=== PATIENT | female | born 1930 | race Caucasian/White ===

== ENCOUNTER → 2016-09-04 | Outpatient (CLI) | payer MEDICARE, BC ==
[~2016-09-04] MED LIST: COLACE 100MG C100 MG PO; HYDROCODON-ACE1 EAC2 PO; LEVOTHYROXINE25 MCG PO; METOPROLOL TART50 MG PO; OXYCODONE-ACET1 EACH PO; PROTONIX40 MG PO
[2016-09-04 12:03] LABS: BUN/CREATININE RATIO 21 (0-10)
== END ==
LOC: OPSV2 10:40
PROVIDERS: Anesthesiology
DX: Z01.810 Encounter for preprocedural cardiovascular examination (principal); Z01.812 Encounter for preprocedural laboratory examination; K40.90 Unilateral inguinal hernia, without obstruction or gangrene, not specified as recurrent
CPT/HCPCS: 36415; 80048; 93005

== ENCOUNTER → 2016-09-12 | Day surgery (SDC) | payer MEDICARE, BC ==
[~2016-09-12] VITALS: Ht 154.9 cm; Wt 63.5 kg
== END | disposition home or self-care (01) ==
LOC: OR 05:51
PROVIDERS: Surgery
PROC: 0YQ50ZZ Repair Right Inguinal Region, Open Approach (ICD-10-PCS; principal; 2016-09-12 07:30)
DX: K40.90 Unilateral inguinal hernia, without obstruction or gangrene, not specified as recurrent (principal); E03.9 Hypothyroidism, unspecified; E55.9 Vitamin D deficiency, unspecified; I10 Essential (primary) hypertension; Z87.19 Personal history of other diseases of the digestive system; Z81.0 Family history of intellectual disabilities; Z88.0 Allergy status to penicillin; Z88.1 Allergy status to other antibiotic agents; Z79.891 Long term (current) use of opiate analgesic; Z79.899 Other long term (current) drug therapy; Z90.49 Acquired absence of other specified parts of digestive tract; Z90.710 Acquired absence of both cervix and uterus; Z90.89 Acquired absence of other organs; Z85.3 Personal history of malignant neoplasm of breast
CPT/HCPCS: J2710; J3010; J7120

== ENCOUNTER 2016-11-06 16:53 | Emergency (ER) | payer MEDICARE, BC | END 2016-11-06 17:04 | disposition left against medical advice (07) | LOC: ER1 16:53 | DX: Z53.21 Procedure and treatment not carried out due to patient leaving prior to being seen by health care provider (principal) ==

== ENCOUNTER 2016-11-12 14:22 | Emergency (ER) | payer MEDICARE, BC ==
[2016-11-12 15:41] LABS: RED BLOOD COUNT 4.24 M/UL (4.00-5.10); WHITE BLOOD COUNT 7.6 K/UL (4.5-11.0)
[2016-11-12 16:09] LABS: BUN/CREATININE RATIO 17 (0-10)
== END 2016-11-12 16:47 | disposition home or self-care (01) ==
LOC: ER1 14:22
PROVIDERS: Physician Assistant Medical
DX: K13.79 Other lesions of oral mucosa (principal); T36.7X5A Adverse effect of antifungal antibiotics, systemically used, initial encounter; I10 Essential (primary) hypertension; Z88.0 Allergy status to penicillin; Z88.1 Allergy status to other antibiotic agents
CPT/HCPCS: 36415; 80053; 84443; 85025; 99282

== ENCOUNTER 2016-11-26 09:31 | Emergency (ER) | payer MEDICARE, BC | END 2016-11-26 09:35 | disposition left against medical advice (07) | LOC: ER1 09:31 | DX: Z53.21 Procedure and treatment not carried out due to patient leaving prior to being seen by health care provider (principal) ==

== ENCOUNTER 2016-11-28 10:19 | Emergency (ER) | payer MEDICARE, BC ==
[2016-11-28 10:43] LABS: HEMOGLOBIN 10.9 gm/dl (12.3-15.3); RED BLOOD COUNT 4.24 M/UL (4.00-5.10); WHITE BLOOD COUNT 7.7 K/UL (4.5-11.0)
[2016-11-28 11:07] LABS: BUN/CREATININE RATIO 15 (0-10)
== END 2016-11-28 13:45 | disposition home or self-care (01) ==
LOC: ER1 10:19
PROVIDERS: Family Medicine
DX: R06.02 Shortness of breath (principal); Z88.0 Allergy status to penicillin; Z88.1 Allergy status to other antibiotic agents
CPT/HCPCS: 36415; 71020; 80053; 82150; 82550; 82553; 83690; 83874; 84443; 84484; 85025; 93005; 99285